=== PATIENT | female | born 1955 | race Hispanic/Latino ===

== ENCOUNTER 2025-11-01 08:24 | Emergency (ER) | payer OTHER, SELFPAY ==
[~2025-11-01] VITALS: Ht 147.3 cm; Wt 64.4 kg
[2025-11-01] MEDS: LIDOCAINE 5% TOPICAL PATCH TP STA (08:57)
[2025-11-01] MEDS ORDERED: NAPR-1196 PO (09:45)
[2025-11-01] MEDS ORDERED: CYCL10TA16 PO (09:45)
--- NOTE | 2025-11-01 09:45 | ERN ---
ED Note History of Present Illness Stated Complaint: BACK PAIN Chief Complaint: Low Back Pain/Injury Time Seen by MD: 08:30 Dictation: 69-year-old female presenting to the emergency department with low back pain that radiates to her left leg back portion of it. Patient reports similar episodes in the past and symptoms have been going on for few days as she was more active. No chest pain or shortness a breath no nausea vomiting no abdominal pain. No pain with urination Allergies: Coded Allergies: No Known Drug Allergies (Unverified Allergy, Unknown, 11/01/25) Past Medical History Past Medical History: Hypothyroid Surgical History: Review of System Dictation Constitutional: Negative for fever,chills, and weight loss Eyes: Negative for injury, pain,redness, and discharge ENT: Negative for injury,pain or swelling Cardiovascular: Negative for chest pain, palpitations, and edema Respiratory: Negative for shortness of breath, cough, and wheezing, Abdomen/GI: Negative for abdominal pain, nausea, vomiting, diarrhea, and constipation Back: Per HPI : Negative for injury, bleeding and discharge MS/Extremity: Per HPI Skin: Negative for rash, and discoloration Neuro: Negative for headache, weakness, numbness, tingling, and seizure Psych: Negative for suicide ideation, homicidal ideation, and hallucinations Initial Vital Sign VS Vital Signs Date Time Temp Pulse Resp B/P (MAP) Pulse Ox O2 Delivery O2 Flow Rate FiO2 11/01/25 08:26 98.1 66 18 156/91 97 Room Air 0 Physical Exam Dictation General: awake, alert, NAD Head/Face: Normocephalic, atraumatic Eyes: PERRL, EOMI, vision at baseline ENT: oral cavity clear, TMs clear, no signs of infection Neck: Trachea midline, supple, no nuchal rigidity Cardiovascular: RRR, normal S1/S2, No MRGs, no JVD Respiratory: CTAB, no respiratory distress, No rales or wheezes Abdomen: Soft, non-tender, non-distended, normal bowel sounds, no guarding or rebound. Skin: Warm, dry, normal turgor, no rash MS/Extremity: Pulses equal, no cyanosis, neurovascular intact, FROM Neuro: COAx4, GCS 15, strength 5/5, CN 2-12 intact, normal cerebellar exam, normal gait, Psych: Normal behavior, mood, and affect normal Results (Laboratory/Radiology) X-RAY Comment: No acute process on lumbar x-rays, no fractures or dislocations ED Course ED Course Orders Procedure Category Date Status Time Lumbar Spine 2-3vws RAD 11/01/25 Taken 08:34 Lidocaine (Lidoderm PHA 11/01/25 Complete Patch 5%) 08:34 Ketorolac PHA 11/01/25 Complete Tromethamine 15mg/Ml 08:34 Current Medications Medications (Trade) Dose Ordered Sig/Joyce Route PRN Reason Start Time Stop Time Status Last Admin Dose Admin Ketorolac Tromethamine (toRADol) 15 mg ONCE STAT IM 11/01/25 08:34 11/01/25 08:37 DC 11/01/25 08:57 Lidocaine (Lidoderm Patch 5%) 1 patch ONCE STAT TP 11/01/25 08:34 11/01/25 08:37 DC 11/01/25 08:57 Vital Signs Date Time Temp Pulse Resp B/P (MAP) Pulse Ox O2 Delivery O2 Flow Rate FiO2 11/01/25 08:26 98.1 66 18 156/91 97 Room Air 0 Medical Decision Making MDM MDM: Differential diagnosis: Rationale: Tests considered and ordered secondary to shared decision making include: Previous outside records reviewed: Old ER visits. Risk of complication and/or morbidity or mortality of patient management: None Medications-Per medication reconciliation Need for hospitalization: Patient does not meet criteria for hospitalization. Need for emergency major/minor surgery: No There are no social concerns with this patient. Prescription drug management Prescriptions will include symptomatic care Patient's prior external medical records from other ER visits were reviewed by me as indicated. Prior testing and results from previous visits were reviewed. Prior tests were taken into account with medical decision making and resource utilization, independent historian/historians were used to obtain complete medical history. I independently interpreted the test that were performed, results were reviewed by me and considered findings on radiology if ordered. Medical management and examination interpretation discussions were had by me with other qualified healthcare professionals as indicated for the patient's care. 69-year-old female with low back pain radiates to the back of her left leg, sciatica like from clinical presentation x-ray looks stable, abdominal exam was negative, vitals are all stable symptoms improved with medications stable for discharge prescriptions given. DX & DISP Disposition: Discharge Departure Impression: Primary Impression: Low back pain Condition: Stable Scripts Cyclobenzaprine HCl (Flexeril) 10 Mg Tab 10 MG PO DAILYDINNER for muscle sstiffness for 10 Days, #10 TAB 0 Refills Prov: ERNESTO BASSETT MD 11/01/25 Naproxen (Naproxen) 250 Mg Tablet 1 TAB PO BID for pain for 7 Days, #14 TAB 0 Refills Prov: ERNESTO BASSETT MD 11/01/25 Referrals: MICHAEL MICHELLE MD (PCP) ERNESTO BASSETT MD Nov 01, 2025 09:45
[2025-11-01 09:55] VITALS: BP 142/73; PULSE 72; RESP 20; TEMP 98.6; O2SAT 98
--- NOTE | 2025-11-01 11:14 | HMCIMG ---
EXAM: CR Lumbar Spine, 3 View. CLINICAL HISTORY: injury COMPARISON: None provided. FINDINGS: BONES: No acute fracture or aggressive appearing osseous lesion. ALIGNMENT: Alignment is within normal limits. No significant scoliosis. DISCS / DEGENERATIVE CHANGES: The disc spaces are preserved. SOFT TISSUES: The soft tissues are unremarkable. IMPRESSION: No acute lumbar spine abnormality evident. /[place]
== END 2025-11-01 10:55 | disposition home or self-care (01) ==
LOC: EDH 08:24
DX: M54.50 Low back pain, unspecified (principal); E03.9 Hypothyroidism, unspecified; Z98.890 Other specified postprocedural states
CPT/HCPCS: 99283; 72100; 96372; J1885